=== PATIENT | female | born 1985 | race Caucasian/White ===

== ENCOUNTER 2021-07-06 15:50 | Inpatient (IN) | payer OTHER ==
[2021-07-06] MEDS ORDERED: SODIUM CHLORIDE 0.9% 500 ML INFUS.BAG IV ONE (16:50)
[2021-07-06] MEDS ORDERED: guaiFENesin 200 MG/10 ML 10 ML UNIT-DOSE CUPS PO ONE (16:50)
[2021-07-06] MEDS ORDERED: DEXAMETHASONE SOD PHOSPHATE 10 MG/1 ML VIAL IVPUSH ONE (17:10)
[2021-07-06] MEDS ORDERED: guaiFENesin/D-METHORPHAN HB 10 ML UNIT-DOSE CUPS ONE (17:38)
[2021-07-06] MEDS ORDERED: DEXAMETHASONE SOD PHOSPHATE 10 MG/1 ML VIAL ONE (17:38)
[2021-07-06] MEDS ORDERED: AZITHROMYCIN IVPB 500 MG in DEXTROSE 5%-WATER - 250 ML IVPB ONE (18:03)
[2021-07-06] MEDS ORDERED: CEFTRIAXONE 1 GM in DEXTROSE 5%-WATER - 100 ML IVPB ONE (18:03)
[2021-07-06] MEDS ORDERED: AZITHROMYCIN IVPB 500 MG/250 ML BAG IVPB ONE (18:11)
[2021-07-06] MEDS ORDERED: CEFAZOLIN 1 GM/D5W 1 GM/50 ML BAG ONE (18:11)
[2021-07-06] MEDS ORDERED: CEFTRIAXONE 1 GM/50 ML BAG ONE (18:12)
[2021-07-06 18:45] LABS: BASO % 0.3 % (0-2.0); HEMATOCRIT 42.3 % (32.4-45.2); HEMOGLOBIN 14.5 GM/dL (10.7-15.3); LYMPH % 21.2 % (8-40); MCH 26.4 pg (25.7-33.7); MCHC 34.3 g/dl (32.0-36.0); MEAN CELL VOLUME 77.1 fl (80-96); NEUT % 69.5 % (42.8-82.8); PLATELET COUNT 159 10^3/uL (134-434); RBC 5.49 M/mm3 (3.60-5.2); RDW 14.5 % (11.6-15.6); WHITE BLOOD COUNT 4.2 K/mm3 (4.0-10.0)
[2021-07-06 18:53] LABS: CHLORIDE 99 mmol/L (98-107); INR 1.22 (0.83-1.09); PROTHROMBIN TIME (PATIENT) 14.7 SEC (9.7-13.0); SODIUM 136 mmol/L (136-145)
[2021-07-06 18:55] LABS: ALBUMIN 3.4 g/dl (3.4-5.0); ANION GAP 12 MMOL/L (8-16); BLOOD UREA NITROGEN 6.6 mg/dL (7-18); CALCIUM 8.1 mg/dL (8.5-10.1); CO2 25 mmol/L (21-32); GLUCOSE,RANDOM 98 mg/dL (74-106)
[2021-07-06 18:56] LABS: ACTIVATED PTT 29.8 SECONDS (25.2-36.5)
[2021-07-06 18:58] LABS: BILIRUBIN,DIRECT 0.2 mg/dL (0.0-0.2); CREATININE 0.6 mg/dL (0.55-1.3); SGOT/AST 134 U/L (15-37); SGPT/ALT 104 U/L (13-61)
[2021-07-06 19:00] LABS: BILIRUBIN,TOTAL 0.4 mg/dL (0.2-1); LDH 548 U/L (84-246); TOT PROT 7.4 g/dl (6.4-8.2)
[2021-07-06 19:01] LABS: ALK PHOS 76 U/L (45-117)
[2021-07-06] MEDS ORDERED: ENOXAPARIN NA (PORCINE) 40 MG/0.4 ML DISP.SYRIN SQ SCH (20:45)
[2021-07-07] MEDS: FAMOTIDINE 20 MG TABLET PO SCH ×2 (05:21→09:15)
[2021-07-07] MEDS: INSULIN SLIDING SCALE (NOVOLOG) 1 VIAL SQ SCH ×5 (05:21→22:12)
[2021-07-07] MEDS: ENOXAPARIN NA (PORCINE) 40 MG/0.4 ML DISP.SYRIN SQ SCH ×3 (05:21→22:11)
[2021-07-07] MEDS: ASCORBIC ACID 250 MG TABLET (FP) PO SCH ×3 (05:22→22:11)
[2021-07-07] MEDS ORDERED: PT OWN MED DRAWER 7, Y5N ONE ×2 (09:06→20:15)
[2021-07-07 09:07] LABS: HEMATOCRIT 39.7 % (32.4-45.2); HEMOGLOBIN 13.7 GM/dL (10.7-15.3); MCH 26.6 pg (25.7-33.7); MCHC 34.5 g/dl (32.0-36.0); MEAN CELL VOLUME 77.1 fl (80-96); MEAN PLT VOLUME 8.7 fl (7.5-11.1); PLATELET COUNT 176 10^3/uL (134-434); RBC 5.15 M/mm3 (3.60-5.2); RDW 14.5 % (11.6-15.6); WHITE BLOOD COUNT 2.3 K/mm3 (4.0-10.0)
[2021-07-07] MEDS: DEXAMETHASONE SOD PHOSPHATE 10 MG/1 ML VIAL IVPUSH SCH (09:14)
[2021-07-07] MEDS: guaiFENesin/D-M SUGAR-FREE/ACLHOL-FREE 118 ML BOTTLE PO PRN ×2 (09:15→23:57)
[2021-07-07 09:26] LABS: CHLORIDE 105 mmol/L (98-107); SODIUM 138 mmol/L (136-145)
[2021-07-07 09:34] LABS: BLOOD UREA NITROGEN 8.2 mg/dL (7-18); SGPT/ALT 84 U/L (13-61)
[2021-07-07 09:35] LABS: ANION GAP 9 MMOL/L (8-16); CO2 24 mmol/L (21-32); GLUCOSE,RANDOM 151 mg/dL (74-106)
[2021-07-07 09:36] LABS: BILIRUBIN,TOTAL 0.4 mg/dL (0.2-1)
[2021-07-07 09:37] LABS: ALK PHOS 71 U/L (45-117)
[2021-07-07 09:38] LABS: CREATININE 0.6 mg/dL (0.55-1.3); SGOT/AST 80 U/L (15-37)
[2021-07-07] MEDS ORDERED: SODIUM CHLORIDE 1,000 ML IV SCH (11:45)
[2021-07-07] MEDS: CHOLECALCIFEROL (VIT D3) 5000 UNITS (125 MCG) CAP PO SCH (12:19)
[2021-07-07] MEDS ORDERED: REMDESIVIR 200 MG in SODIUM CHLORIDE 250 ML IVPB ONE (14:25)
[2021-07-07] MEDS ORDERED: INSULIN (NOVOLOG) ASPART 100 UNITS/ML 10ML VIAL ONE ×2 (16:31→17:43)
[2021-07-08] MEDS: ACETAMINOPHEN 325 MG TABLET (FP) PO PRN ×2 (00:13→10:53)
[2021-07-08] MEDS: INSULIN SLIDING SCALE (NOVOLOG) 1 VIAL SQ SCH ×4 (06:06→21:33)
[2021-07-08 09:53] LABS: HEMATOCRIT 42.1 % (32.4-45.2); MCH 26.2 pg (25.7-33.7); MCHC 33.4 g/dl (32.0-36.0); MEAN CELL VOLUME 78.5 fl (80-96); RBC 5.36 M/mm3 (3.60-5.2); RDW 14.5 % (11.6-15.6)
[2021-07-08 10:00] LABS: INR 1.08 (0.83-1.09)
[2021-07-08 10:03] LABS: ACTIVATED PTT 19.6 SECONDS (25.2-36.5)
[2021-07-08 10:18] LABS: CHLORIDE 106 mmol/L (98-107); SODIUM 139 mmol/L (136-145)
[2021-07-08 10:25] LABS: CALCIUM 7.9 mg/dL (8.5-10.1)
[2021-07-08 10:26] LABS: ANION GAP 8 MMOL/L (8-16); BLOOD UREA NITROGEN 10.5 mg/dL (7-18); CO2 25 mmol/L (21-32); GLUCOSE,RANDOM 105 mg/dL (74-106); MAGNESIUM 2.1 mg/dL (1.8-2.4)
[2021-07-08 10:29] LABS: ALK PHOS 69 U/L (45-117); CREATININE 0.6 mg/dL (0.55-1.3); PHOSPHOROUS 3.3 mg/dL (2.5-4.9); SGOT/AST 57 U/L (15-37); SGPT/ALT 66 U/L (13-61)
[2021-07-08 10:31] LABS: BILIRUBIN,TOTAL 0.5 mg/dL (0.2-1)
[2021-07-08] MEDS: ENOXAPARIN NA (PORCINE) 40 MG/0.4 ML DISP.SYRIN SQ SCH ×2 (10:47→21:33)
[2021-07-08] MEDS: DEXAMETHASONE SOD PHOSPHATE 10 MG/1 ML VIAL IVPUSH SCH (10:47)
[2021-07-08] MEDS: CHOLECALCIFEROL (VIT D3) 5000 UNITS (125 MCG) CAP PO SCH (10:48)
[2021-07-08] MEDS: FAMOTIDINE 20 MG TABLET PO SCH (10:48)
[2021-07-08] MEDS: ASCORBIC ACID 250 MG TABLET (FP) PO SCH ×2 (10:48→21:33)
[2021-07-08] MEDS: guaiFENesin/D-M SUGAR-FREE/ACLHOL-FREE 118 ML BOTTLE PO PRN ×2 (10:49→22:30)
[2021-07-08 10:56] LABS: SARS COV 2 AB TOTAL REACTIVE (NONREACTIVE)
[2021-07-08 10:57] LABS: MEAN PLT VOLUME 9.3 fl (7.5-11.1); PLATELET COUNT 220 10^3/uL (134-434)
[2021-07-08 11:16] LABS: ANISOCYTOSIS 3+; MACROCYTOSIS 0; PLATELET ESTIMATE NORMAL
[2021-07-08 11:36] LABS: HIV INTERPRETATION NEGATIVE (NEGATIVE)
[2021-07-08] MEDS ORDERED: REMDESIVIR 100 MG in SODIUM CHLORIDE 250 ML IVPB SCH (14:26)
[2021-07-08] MEDS ORDERED: TOCILIZUMAB 800 MG in SODIUM CHLORIDE 60 ML IVPB ONE (17:00)
[2021-07-08] MEDS ORDERED: ACETAMINOPHEN 325 MG TABLET (FP) PO PRN (21:19)
[2021-07-08] MEDS: CHLORHEXIDINE GLUCONATE 4% CLEANSER FOR DECOLONIZATION TP SCH (21:33)
[2021-07-08] MEDS: MUPIROCIN 2% TOPICAL OINTMENT FOR DECOLONIZATION NS SCH (23:39)
[2021-07-09 06:45] LABS: BASO % 0.4 % (0-2.0); HEMATOCRIT 39.5 % (32.4-45.2); HEMOGLOBIN 13.7 GM/dL (10.7-15.3); MCH 26.9 pg (25.7-33.7); MCHC 34.6 g/dl (32.0-36.0); MEAN CELL VOLUME 77.6 fl (80-96); MEAN PLT VOLUME 8.7 fl (7.5-11.1); NEUT % 63.6 % (42.8-82.8); PLATELET COUNT 260 10^3/uL (134-434); RBC 5.09 M/mm3 (3.60-5.2); RDW 13.8 % (11.6-15.6); WHITE BLOOD COUNT 4.4 K/mm3 (4.0-10.0)
[2021-07-09 06:49] LABS: INR 1.17 (0.83-1.09); PROTHROMBIN TIME (PATIENT) 14.1 SEC (9.7-13.0)
[2021-07-09 06:51] LABS: ACTIVATED PTT 25.4 SECONDS (25.2-36.5)
[2021-07-09] MEDS: INSULIN SLIDING SCALE (NOVOLOG) 1 VIAL SQ SCH ×4 (06:58→21:14)
[2021-07-09 07:07] LABS: ALBUMIN 2.8 g/dl (3.4-5.0); BLOOD UREA NITROGEN 14.4 mg/dL (7-18); MAGNESIUM 2.2 mg/dL (1.8-2.4)
[2021-07-09 07:10] LABS: CREATININE 0.5 mg/dL (0.55-1.3); PHOSPHOROUS 3.3 mg/dL (2.5-4.9)
[2021-07-09 07:12] LABS: BILIRUBIN,TOTAL 0.5 mg/dL (0.2-1); TOT PROT 6.5 g/dl (6.4-8.2)
[2021-07-09] MEDS ORDERED: PT OWN MED DRAWER 7, Y5N ONE ×2 (09:06→21:02)
[2021-07-09] MEDS: CHOLECALCIFEROL (VIT D3) 5000 UNITS (125 MCG) CAP PO SCH (09:25)
[2021-07-09] MEDS: FAMOTIDINE 20 MG TABLET PO SCH (09:25)
[2021-07-09] MEDS: ASCORBIC ACID 250 MG TABLET (FP) PO SCH ×2 (09:25→21:15)
[2021-07-09] MEDS: ENOXAPARIN NA (PORCINE) 40 MG/0.4 ML DISP.SYRIN SQ SCH ×2 (09:25→21:14)
[2021-07-09] MEDS: DEXAMETHASONE SOD PHOSPHATE 10 MG/1 ML VIAL IVPUSH SCH (09:25)
[2021-07-09] MEDS: REMDESIVIR 100 MG in SODIUM CHLORIDE 250 ML IVPB SCH (10:36)
[2021-07-09] MEDS: MUPIROCIN 2% TOPICAL OINTMENT FOR DECOLONIZATION NS SCH ×2 (11:00→21:14)
[2021-07-09] MEDS: guaiFENesin/D-M SUGAR-FREE/ACLHOL-FREE 118 ML BOTTLE PO PRN ×2 (13:50→22:40)
[2021-07-09 14:13] VITALS: BMI 40.6
[2021-07-09] MEDS: CHLORHEXIDINE GLUCONATE 4% CLEANSER FOR DECOLONIZATION TP SCH (21:14)
[2021-07-10 06:40] LABS: BASO % 0.1 % (0-2.0); HEMATOCRIT 39.4 % (32.4-45.2); HEMOGLOBIN 13.5 GM/dL (10.7-15.3); LYMPH % 22.1 % (8-40); MCH 26.7 pg (25.7-33.7); MCHC 34.2 g/dl (32.0-36.0); MEAN PLT VOLUME 8.2 fl (7.5-11.1); MONO % 14.8 % (3.8-10.2); PLATELET COUNT 323 10^3/uL (134-434); RBC 5.06 M/mm3 (3.60-5.2); RDW 14.1 % (11.6-15.6); WHITE BLOOD COUNT 5.3 K/mm3 (4.0-10.0)
[2021-07-10 06:42] LABS: INR 1.19 (0.83-1.09); PROTHROMBIN TIME (PATIENT) 14.6 SEC (9.7-13.0)
[2021-07-10 06:45] LABS: ACTIVATED PTT 27.9 SECONDS (25.2-36.5)
[2021-07-10] MEDS: INSULIN SLIDING SCALE (NOVOLOG) 1 VIAL SQ SCH ×4 (06:56→21:21)
[2021-07-10 07:20] LABS: BLOOD UREA NITROGEN 16.6 mg/dL (7-18); CALCIUM 8.5 mg/dL (8.5-10.1); MAGNESIUM 2.4 mg/dL (1.8-2.4)
[2021-07-10 07:21] LABS: CREATININE 0.6 mg/dL (0.55-1.3)
[2021-07-10 07:23] LABS: PHOSPHOROUS 3.4 mg/dL (2.5-4.9)
[2021-07-10 07:25] LABS: BILIRUBIN,TOTAL 0.5 mg/dL (0.2-1); TOT PROT 6.8 g/dl (6.4-8.2)
[2021-07-10] MEDS: DEXAMETHASONE SOD PHOSPHATE 10 MG/1 ML VIAL IVPUSH SCH (09:25)
[2021-07-10] MEDS: FAMOTIDINE 20 MG TABLET PO SCH (09:25)
[2021-07-10] MEDS: ENOXAPARIN NA (PORCINE) 40 MG/0.4 ML DISP.SYRIN SQ SCH ×2 (09:25→21:20)
[2021-07-10] MEDS: MUPIROCIN 2% TOPICAL OINTMENT FOR DECOLONIZATION NS SCH ×2 (09:25→21:21)
[2021-07-10] MEDS: REMDESIVIR 100 MG in SODIUM CHLORIDE 250 ML IVPB SCH (09:25)
[2021-07-10] MEDS ORDERED: PT OWN MED DRAWER 7, Y5N ONE ×2 (09:27→21:00)
[2021-07-10] MEDS: CHOLECALCIFEROL (VIT D3) 5000 UNITS (125 MCG) CAP PO SCH (09:28)
[2021-07-10] MEDS: ASCORBIC ACID 250 MG TABLET (FP) PO SCH ×2 (09:51→21:22)
[2021-07-10] MEDS: guaiFENesin/CODEINE 10 ML UNIT-DOSE CUPS PO PRN ×2 (09:54→20:16)
[2021-07-10] MEDS: CHLORHEXIDINE GLUCONATE 4% CLEANSER FOR DECOLONIZATION TP SCH (21:21)
[2021-07-11 06:20] LABS: BASO % 0.7 % (0-2.0); EOS % 0.1 % (0-4.5); HEMOGLOBIN 13.9 GM/dL (10.7-15.3); LYMPH % 19.8 % (8-40); MCH 26.5 pg (25.7-33.7); MCHC 33.8 g/dl (32.0-36.0); MEAN CELL VOLUME 78.3 fl (80-96); MEAN PLT VOLUME 7.9 fl (7.5-11.1); MONO % 13.3 % (3.8-10.2); NEUT % 66.1 % (42.8-82.8); PLATELET COUNT 387 10^3/uL (134-434); RBC 5.23 M/mm3 (3.60-5.2); RDW 14.1 % (11.6-15.6); WHITE BLOOD COUNT 7.4 K/mm3 (4.0-10.0)
[2021-07-11 06:41] LABS: CALCIUM 8.5 mg/dL (8.5-10.1)
[2021-07-11 06:42] LABS: BLOOD UREA NITROGEN 17.6 mg/dL (7-18); MAGNESIUM 2.3 mg/dL (1.8-2.4)
[2021-07-11 06:45] LABS: CREATININE 0.8 mg/dL (0.55-1.3); PHOSPHOROUS 3.8 mg/dL (2.5-4.9)
[2021-07-11 06:46] LABS: BILIRUBIN,TOTAL 0.5 mg/dL (0.2-1); TOT PROT 6.8 g/dl (6.4-8.2)
[2021-07-11] MEDS: INSULIN SLIDING SCALE (NOVOLOG) 1 VIAL SQ SCH ×4 (06:50→21:22)
[2021-07-11] MEDS: guaiFENesin/CODEINE 10 ML UNIT-DOSE CUPS PO PRN ×2 (07:41→21:20)
[2021-07-11] MEDS: DEXAMETHASONE SOD PHOSPHATE 10 MG/1 ML VIAL IVPUSH SCH (10:50)
[2021-07-11] MEDS: ENOXAPARIN NA (PORCINE) 40 MG/0.4 ML DISP.SYRIN SQ SCH ×2 (10:50→21:20)
[2021-07-11] MEDS: FAMOTIDINE 20 MG TABLET PO SCH (10:50)
[2021-07-11] MEDS: ASCORBIC ACID 250 MG TABLET (FP) PO SCH ×2 (10:50→21:20)
[2021-07-11] MEDS: MUPIROCIN 2% TOPICAL OINTMENT FOR DECOLONIZATION NS SCH ×2 (10:51→21:20)
[2021-07-11] MEDS: CHOLECALCIFEROL (VIT D3) 5000 UNITS (125 MCG) CAP PO SCH (10:53)
[2021-07-11] MEDS ORDERED: PT OWN MED DRAWER 7, Y5N ONE (10:53)
[2021-07-11] MEDS: REMDESIVIR 100 MG in SODIUM CHLORIDE 250 ML IVPB SCH (10:59)
[2021-07-11] MEDS: CHLORHEXIDINE GLUCONATE 4% CLEANSER FOR DECOLONIZATION TP SCH (21:20)
[2021-07-12] MEDS ORDERED: PT OWN MED DRAWER 7, Y5N ONE ×3 (05:44→21:14)
[2021-07-12] MEDS: INSULIN SLIDING SCALE (NOVOLOG) 1 VIAL SQ SCH ×4 (06:18→21:22)
[2021-07-12] MEDS: guaiFENesin/CODEINE 10 ML UNIT-DOSE CUPS PO PRN ×2 (06:49→21:22)
[2021-07-12 07:06] LABS: BASO % 0.7 % (0-2.0); EOS % 0.2 % (0-4.5); HEMATOCRIT 42.6 % (32.4-45.2); HEMOGLOBIN 14.6 GM/dL (10.7-15.3); LYMPH % 22.2 % (8-40); MCH 26.7 pg (25.7-33.7); MCHC 34.3 g/dl (32.0-36.0); MEAN CELL VOLUME 77.9 fl (80-96); MEAN PLT VOLUME 7.6 fl (7.5-11.1); MONO % 10.2 % (3.8-10.2); NEUT % 66.7 % (42.8-82.8); PLATELET COUNT 448 10^3/uL (134-434); RBC 5.47 M/mm3 (3.60-5.2); RDW 14.1 % (11.6-15.6); WHITE BLOOD COUNT 10.3 K/mm3 (4.0-10.0)
[2021-07-12 07:23] LABS: ALBUMIN 3.3 g/dl (3.4-5.0); BLOOD UREA NITROGEN 19.2 mg/dL (7-18); CALCIUM 8.8 mg/dL (8.5-10.1); MAGNESIUM 2.3 mg/dL (1.8-2.4)
[2021-07-12 07:26] LABS: CREATININE 0.8 mg/dL (0.55-1.3); PHOSPHOROUS 4.2 mg/dL (2.5-4.9)
[2021-07-12 07:28] LABS: BILIRUBIN,TOTAL 0.5 mg/dL (0.2-1); TOT PROT 7.1 g/dl (6.4-8.2)
[2021-07-12] MEDS: MUPIROCIN 2% TOPICAL OINTMENT FOR DECOLONIZATION NS SCH ×2 (10:16→21:23)
[2021-07-12] MEDS: FAMOTIDINE 20 MG TABLET PO SCH (10:17)
[2021-07-12] MEDS: DEXAMETHASONE SOD PHOSPHATE 10 MG/1 ML VIAL IVPUSH SCH (10:17)
[2021-07-12] MEDS: ENOXAPARIN NA (PORCINE) 40 MG/0.4 ML DISP.SYRIN SQ SCH ×2 (10:17→21:22)
[2021-07-12] MEDS: ASCORBIC ACID 250 MG TABLET (FP) PO SCH ×2 (10:18→21:22)
[2021-07-12] MEDS: CHOLECALCIFEROL (VIT D3) 5000 UNITS (125 MCG) CAP PO SCH (10:29)
[2021-07-12] MEDS: CHLORHEXIDINE GLUCONATE 4% CLEANSER FOR DECOLONIZATION TP SCH (21:23)
[2021-07-13] MEDS: INSULIN SLIDING SCALE (NOVOLOG) 1 VIAL SQ SCH ×4 (06:10→21:38)
[2021-07-13 07:44] LABS: BASO % 0.5 % (0-2.0); EOS % 0.6 % (0-4.5); HEMATOCRIT 42.2 % (32.4-45.2); HEMOGLOBIN 14.1 GM/dL (10.7-15.3); LYMPH % 19.4 % (8-40); MCH 26.1 pg (25.7-33.7); MCHC 33.4 g/dl (32.0-36.0); MEAN CELL VOLUME 78.2 fl (80-96); MEAN PLT VOLUME 8.3 fl (7.5-11.1); MONO % 12.4 % (3.8-10.2); NEUT % 67.1 % (42.8-82.8); PLATELET COUNT 442 10^3/uL (134-434); RBC 5.39 M/mm3 (3.60-5.2); RDW 13.8 % (11.6-15.6); WHITE BLOOD COUNT 13.5 K/mm3 (4.0-10.0)
[2021-07-13 08:08] LABS: CALCIUM 8.7 mg/dL (8.5-10.1)
[2021-07-13 08:09] LABS: ALBUMIN 3.2 g/dl (3.4-5.0)
[2021-07-13 08:12] LABS: CREATININE 0.8 mg/dL (0.55-1.3)
[2021-07-13 08:14] LABS: BILIRUBIN,TOTAL 0.5 mg/dL (0.2-1); TOT PROT 6.6 g/dl (6.4-8.2)
[2021-07-13] MEDS ORDERED: PT OWN MED DRAWER 7, Y5N ONE (09:41)
[2021-07-13] MEDS: ASCORBIC ACID 500 MG TABLET (FP) PO SCH ×3 (09:44→21:34)
[2021-07-13] MEDS: MUPIROCIN 2% TOPICAL OINTMENT FOR DECOLONIZATION NS SCH (09:44)
[2021-07-13] MEDS: DEXAMETHASONE SOD PHOSPHATE 10 MG/1 ML VIAL IVPUSH SCH (09:45)
[2021-07-13] MEDS: ENOXAPARIN NA (PORCINE) 40 MG/0.4 ML DISP.SYRIN SQ SCH ×2 (09:46→21:34)
[2021-07-13] MEDS: amLODIPine BESYLATE 10 MG TABLET (FP) PO SCH (09:46)
[2021-07-13] MEDS: ZINC SULFATE 220 MG CAPSULE (FP) PO SCH (09:46)
[2021-07-13] MEDS: guaiFENesin/CODEINE 10 ML UNIT-DOSE CUPS PO PRN ×2 (09:47→21:38)
[2021-07-13] MEDS: CHOLECALCIFEROL (VIT D3) 5000 UNITS (125 MCG) CAP PO SCH (12:55)
[2021-07-13] MEDS: CHLORHEXIDINE GLUCONATE 4% CLEANSER FOR DECOLONIZATION TP SCH (21:34)
[2021-07-14] MEDS: INSULIN SLIDING SCALE (NOVOLOG) 1 VIAL SQ SCH ×3 (06:30→17:40)
[2021-07-14 07:04] LABS: HEMATOCRIT 40.6 % (32.4-45.2); HEMOGLOBIN 13.8 GM/dL (10.7-15.3); MCH 26.5 pg (25.7-33.7); MEAN CELL VOLUME 77.9 fl (80-96); MEAN PLT VOLUME 7.7 fl (7.5-11.1); PLATELET COUNT 434 10^3/uL (134-434); RBC 5.22 M/mm3 (3.60-5.2); RDW 14.3 % (11.6-15.6); WHITE BLOOD COUNT 14.9 K/mm3 (4.0-10.0)
[2021-07-14 07:25] LABS: CALCIUM 8.9 mg/dL (8.5-10.1)
[2021-07-14 07:26] LABS: ALBUMIN 3.2 g/dl (3.4-5.0); BLOOD UREA NITROGEN 15.5 mg/dL (7-18); MAGNESIUM 2.4 mg/dL (1.8-2.4)
[2021-07-14 07:29] LABS: BILIRUBIN,TOTAL 0.4 mg/dL (0.2-1); CREATININE 0.7 mg/dL (0.55-1.3); PHOSPHOROUS 4.6 mg/dL (2.5-4.9); TOT PROT 6.5 g/dl (6.4-8.2)
[2021-07-14] MEDS: ENOXAPARIN NA (PORCINE) 40 MG/0.4 ML DISP.SYRIN SQ SCH (10:01)
[2021-07-14] MEDS: amLODIPine BESYLATE 10 MG TABLET (FP) PO SCH (10:01)
[2021-07-14] MEDS: CHOLECALCIFEROL (VIT D3) 5000 UNITS (125 MCG) CAP PO SCH (10:01)
[2021-07-14] MEDS ORDERED: PT OWN MED DRAWER 7, Y5N ONE (10:01)
[2021-07-14] MEDS: FAMOTIDINE 20 MG TABLET PO SCH (10:02)
[2021-07-14] MEDS: ASCORBIC ACID 500 MG TABLET (FP) PO SCH (10:02)
[2021-07-14] MEDS: ZINC SULFATE 220 MG CAPSULE (FP) PO SCH (10:02)
[2021-07-14] MEDS: DEXAMETHASONE SOD PHOSPHATE 10 MG/1 ML VIAL IVPUSH SCH (10:02)
[2021-07-14] MEDS: guaiFENesin/CODEINE 10 ML UNIT-DOSE CUPS PO PRN (10:04)
[2021-07-14 18:17] VITALS: BP 153/100; PULSE 89; TEMP 98.4
== END 2021-07-14 20:02 | disposition home or self-care (01) | DRG 137 ==
LOC: JER 15:50 → JERBED 19:43 → J8W 07-07 04:59 → JICU 07-08 20:28
PROVIDERS: ADMIT Internal Medicine
PROC: XW033E5 Introduction of Remdesivir Anti-infective into Peripheral Vein, Percutaneous Approach, New Technology Group 5 (ICD-10-PCS; principal; 2021-07-08)
PROC: XW033H5 Introduction of Tocilizumab into Peripheral Vein, Percutaneous Approach, New Technology Group 5 (ICD-10-PCS; 2021-07-08)
DX: U07.1 COVID-19 (principal); J12.82 Pneumonia due to coronavirus disease 2019; J80 Acute respiratory distress syndrome; E11.9 Type 2 diabetes mellitus without complications; E66.01 Morbid (severe) obesity due to excess calories; Z68.41 Body mass index [BMI] 40.0-44.9, adult; M62.82 Rhabdomyolysis; E78.5 Hyperlipidemia, unspecified; I10 Essential (primary) hypertension
CPT/HCPCS: 36415; 71045-TC-FY; 80053; 82248; 82550; 82553; 82728; 82962; 83036; 83615; 83735; 84100; 84443; 84703; 85025; 85027; 85379; 85610; 85730; 86140; 86738; 86769; 87040; 87389; 87804; 87899; 93005; 93010; 94010; 94761; 97116-GP; 97161-GP; 99285-25; C9399; C9803; J1100; J3262; U0003; U0005